=== PATIENT | female | born 1985 | race Asian ===

== ENCOUNTER 2021-11-20 23:51 | Emergency (ER) | payer SELFPAY ==
[~2021-11-20] VITALS: Ht 154.9 cm; Wt 58.6 kg
[2021-11-20 23:52] VITALS: TEMP 97.4
[2021-11-21 00:44] VITALS: BP 132/78; PULSE 76
== END 2021-11-21 00:44 | disposition home or self-care (01) ==
LOC: COL.ER 23:51
DX: F41.9 Anxiety disorder, unspecified (principal); E86.0 Dehydration